=== PATIENT | female | born 1965 | race Caucasian/White ===

== ENCOUNTER 2017-07-09 09:15 | Emergency (ER) | payer OTHER ==
[~2017-07-09] VITALS: Ht 157.5 cm; Wt 75.6 kg
[~2017-07-09 09:15] MED LIST: AZITHROMYCIN500 M1 PO; LEVEMIR FL100 UNITS/ SC; NEXIUM40 MG PO
[2017-07-09 09:55] LABS: POINT-OF-CARE METER ID UU13113778
[2017-07-09 11:17] LABS: CHLORIDE 106 mEq/L (99-109); POTASSIUM 4.1 mEq/L (3.7-5.4); SODIUM 139 mEq/L (136-147)
[2017-07-09 11:19] LABS: GLUCOSE 110 mg/dL (70-99)
[2017-07-09 11:20] LABS: ANION GAP 9 MEQ/L (2-14)
[2017-07-09 11:23] LABS: GFR ESTIMATE (CALCULATED) > 59 mL/min/
[2017-07-09 11:24] LABS: UREA NITROGEN (BUN) 12 mg/dL (9-23)
[2017-07-09] MEDS ORDERED: TESSALON PERLE100 MG PO (11:31)
[2017-07-09] MEDS ORDERED: ZITHROMAX Z-PA250 MG PO (11:31)
[2017-07-09 11:49] VITALS: BP 115/57
== END 2017-07-09 11:48 | disposition home or self-care (01) ==
LOC: EME 09:15
PROVIDERS: Physician Assistant
DX: J20.9 Acute bronchitis, unspecified (principal); F17.200 Nicotine dependence, unspecified, uncomplicated; E11.9 Type 2 diabetes mellitus without complications; Z79.4 Long term (current) use of insulin
CPT/HCPCS: 71020; 80048; 82948; 93005; 94640; 99281; 99283